=== PATIENT | male | born 1960 | race Asian ===

== ENCOUNTER 2019-12-03 05:41 | Day surgery (SDC) | payer OTHER ==
[2019-11-27 12:28] LABS: HEMATOCRIT 41.2 % (42.0-52.0); HEMOGLOBIN 13.9 gm/dL (14.0-18.0); MCH 31.1 pg (26.0-34.0); MCHC 33.7 g/dL (28.0-37.0); MCV 92.4 fL (80.0-100.0); RBC 4.46 mil/uL (4.50-6.00); RDW 12.6 % (10.5-14.5)
[2019-11-27 12:35] LABS: PROTIME 10.1 Seconds (9.3-11.4)
[2019-11-27 12:36] LABS: ALBUMIN 4.1 g/dL (3.4-5.0); CALCIUM 8.7 mg/dL (8.5-10.1); POTASSIUM 3.8 mmol/L (3.5-5.1); URINE BILIRUBIN NEGATIVE (Negative); URINE BLOOD NEGATIVE (Negative); URINE CLARITY CLEAR; URINE COLOR YELLOW; URINE GLUCOSE-RANDOM* NEGATIVE (Negative); URINE KETONES NEGATIVE (Negative); URINE NITRITE-REFLEX NEGATIVE (Negative); URINE PROTEIN (DIPSTICK) NEGATIVE (Negative); URINE SPECIFIC GRAVITY 1.025 (1.005-1.035); URINE UROBILINOGEN 0.2 E.U./dl (0.2-1.0)
[2019-11-27 12:45] LABS: URINE LEUKOCYTES-REFLEX 1+ (Negative)
[2019-11-27 12:53] LABS: BACTERIA-REFLEX 1-9 Few /HPF (None Seen); CASTS None Seen /LPF (None Seen); CRYSTALS None Seen /LPF (None Seen); SQUAMOUS None Seen /LPF (0-3); URINE RBC None Seen /HPF (0-2); URINE WBC-REFLEX 0-5 Rare /HPF (0-5)
[~2019-12-03] VITALS: Ht 157.5 cm; Wt 71.7 kg
[2019-12-03] VITALS (11 sets, daily range): BP systolic 111–152; BP diastolic 68–111
[~2019-12-03 05:41] MED LIST: CLARITIN10 M3 PO
--- NOTE | 2019-12-03 14:38 | NUR ---
PT CARE ASSUMED AT 1030 POST OPERATIVE FOR A R. KNEE. A&Ox4. BP ELEVATED AND PT STATED THIS HAS BEEN NORMAL FOR HIS ONE WEEK PRIOR TO SURGERY DUE TO STRESS, PAIN, AND ANXIETY OF FOR THE SURGERY. BP IS 152/111. PAGED DR. MASSEY OFFICE AND AWAITING FURTHER ORDERS. AWAITING PT EVALUATION. PT WOULD LIKE TO GO HOME TODAY. PT IS CONFIDENTIAL. MELI HOSES, SCD'S, AND POLAR PACK IN PLACE. KENIA DRESSING INTACT. PULSES +2 ON OPERATIVE SITE. PT DENIES PAIN. PT COMPLAINS OF MINIMAL NAUSEA, ZOFRAN GIVEN. IV PATENT WITH NO REDNESS OR EDEMA. FLUIDS INFUSING. FALL PROTOCOL IN PLACE. CALL LIGHT IN REACH. ORDERS ARE TO CONSULT HOSPITALIST FOR CLOSER EVALUATION OF BP AND ONE EXTRA BAG OF FLUIDS WITH INCREASED RATE FROM 100ML/HR TO 150ML/HR
--- NOTE | 2019-12-03 15:29 | NUR ---
Patient has slept since being on the floor post-op. Parents are currently in the room. During physical therapy, patient became hypertensive and nausous. Gave zofran and called surgeon for order regaurding BP. Verbal order to increase fluids to 150 ml/hr. Doctor came to consult patient and ordered hypertensive medication PRN. Voided a very small amount. PT is back in room at this time.
--- NOTE | 2019-12-03 20:16 | NUR ---
ASSESSMENT COMPLETED. PT GIVEN PRN ZOFRAN, ABLE TO TAKE ORAL HS MEDS. PT RATES PAIN AT A 0/10. NEURO CHECKS TO LLE INTACT. KENIA DRSG, SCDS AND POLAR IN PLACE. FLUIDS REDUCED TO 100/HR PER PT REQUEST. BP AT A DECENT LEVEL. PT MAKES NEEDS KNOWN. PLEASANT AND COOPERATIVE.UNDER OBS STATUS. WILL CONTINUE WITH POC TILL EOS.
[2019-12-04 04:00] VITALS: BP 127/81
[2019-12-04 05:36] LABS: ABSOLUTE NEUTROPHILS 7.6 thou/uL (1.4-8.2); BASOPHILS 0.1 % (0.0-2.0); EOSINOPHILS 0.3 % (0.0-3.0); HEMATOCRIT 35.1 % (42.0-52.0); HEMOGLOBIN 11.8 gm/dL (14.0-18.0); LYMPHOCYTES 12.5 % (24.0-44.0); MCH 31.3 pg (26.0-34.0); MCHC 33.8 g/dL (28.0-37.0); MCV 92.7 fL (80.0-100.0); MONOCYTES 9.4 % (1.0-8.0); PLATELET COUNT 142 thou/uL (150-400); POLYS 77.7 % (36.0-66.0); RBC 3.79 mil/uL (4.50-6.00); RDW 12.6 % (10.5-14.5); WBC 9.8 thou/uL (4.0-11.0)
[2019-12-04 08:20] VITALS: BP 115/79
[2019-12-04 09:55] VITALS: BP 115/79
[2019-12-04 12:15] VITALS: BP 115/79
--- NOTE | 2019-12-04 12:57 | NUR ---
PT ADMITTED RLEATED TO LEFT PARTIAL KNEE REPLACEMENT. CM MET WITH PT AT BEDSIDE THIS DAY. PT IS A&O X4. CM ROLE INTRODUCED. PT INDICATED HE LIVE ALONE IN A HOUSE WITH 4 STEPS TO ENTER AND NONE INSIDE. PT INDICATED HE HAD USED A [employer] GLASS C[employer]TER. PT INIDCATED HE NEEDED A FWW FOR HOME USE. CM SENT ORDER TO [facility] THEY ARE IN NETWORK WITH PT'S INSURANCE. CM CALLED TO NOTIFY THEM OF ORDER AND THEY INDICATED THAT THEY COULD HAVE IT DELIVERED WITHIN 30 MINS OF RECIEVEING ORDER SO CM INDICATED THAT PT PT ANC CARE TEAM. FWW STILL HADN'T BEEN DELIVERED HOURS LATER. CM CALLED TO GET ETA AT 11:50 AND IT WAS INDICATED IT WAS OUT FOR DELIVERY AND SHOULD BE TO PT'S ROOM WITHIN THE HOUR. CM UPDATED CARE TEAM. PT INDICATED HE PLANS TO DO OP PT HERE AT [facility]. NO OTHER CM INTERVENTION INDICATED. CASE CLOSED.
--- NOTE | 2019-12-04 15:24 | O ---
[facility] [place] [address] OPERATIVE REPORT Name: NAHOMY CABRERA Room #: DEP [facility] M.R.#: [id number] Admission: 12/03/19 Attend Phys: James Armstrong MD Discharge: 12/04/19 Date of : 62 Report #: [id number] THIS REPORT FOR: cc: Anant Flores MD, Rene P. MD Abraham,James Sethi MD ~ CC: Anant Armstrong DATE OF SERVICE: 12/03/2019 PREOPERATIVE DIAGNOSIS: Left knee medial compartment osteoarthritis. POSTOPERATIVE DIAGNOSIS: Left knee medial compartment osteoarthritis. PROCEDURE: Left medial compartment knee arthroplasty using Navio robotic assistance. SURGEON: James Armsrtong MD WAREHOUSING TECHNICIAN: Alicia Foster PA-C INDICATIONS FOR WAREHOUSING TECHNICIAN: Throughout the case, extensive retraction and manipulation of the knee was required. This was afforded to me by my melter assistant. ANESTHESIA: LMA with an adductor canal block. IMPLANTS: Rodriguez [employer] Nephew size 4 Journey Oxinium medial femoral component, a size 1 tibia and a size 9 polyethylene. TOURNIQUET TIME: 48 minutes. ESTIMATED BLOOD LOSS: 25 mL. COMPLICATIONS: None. SPECIMENS: None. CONDITION UPON LEAVING THE OPERATING ROOM: Stable. INDICATIONS FOR PROCEDURE: The patient is a 59-year-old gentleman with severe left knee medial compartment osteoarthritis. He had failed conservative measures for this and after discussion with him, he elected for left medial compartment knee arthroplasty. DESCRIPTION OF PROCEDURE: Risks, benefits, alternatives and complications were [facility] [address] [place] [address] OPERATIVE REPORT Name: NAHOMY CABRERA Room #: DEP [facility] M.Sen.#: [id number] Admission: 12/03/19 Attend Phys: James Armstrong MD Discharge: 12/04/19 Date of : 62 Report #: [id number] discussed in detail with the patient including but not limited to risk of anesthesia, risk of damage to nerves, arteries, blood vessels, risk for infection, bleeding, risk for continued knee pain, need for reoperation. Informed consent was obtained from the patient. Left knee was appropriately marked in the preoperative holding area. IV Ancef was given for preoperative antibiotics. Adductor canal block was placed by anesthesia. He was brought to the operating room and placed in supine position on operating room table. LMA anesthesia was induced without complication. Tourniquet was placed on the left thigh. Left lower extremity was prepped and draped in normal sterile fashion. Timeout was performed properly identifying the patient and procedure as well as the instrumentation and implants. All in the operating room were in agreement. Left lower extremity was exsanguinated, tourniquet was inflated. Tourniquet time was 48 minutes. Standard approach to the medial knee was made with 10 blade through the skin. Dissection was taken down sharply to the fascia and deep flaps were developed medially and laterally. Fresh 10 blade was used to make a medial parapatellar arthrotomy and the knee was inspected. There was severe medial compartment osteoarthritis. Lateral compartment was well maintained. ACL was intact. 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 It was decided to proceed with medial compartment arthroplasty. Reference pins were placed in the femur and the tibia. The knee was then digitally mapped using the Manzama robotic system. Intraoperative plan was made and we sized the size 4 femur with a size 1 tibia with a size 10 spacer. After acceptance of the intraoperative plan, the femoral and tibial resections were made with a Navio bur. The remainder of the meniscus was removed with Bovie cautery. The tibia was sized, found to be a size 1 and a size 1 tibial trial was pinned and drilled. A size 4 femoral trial was placed. This was then trialed with a size 9 polyethylene. Knee was taken through range of motion, found to have a millimeter of laxity medially throughout range of motion of the knee with good balance throughout range of motion. After this, trial components were removed. Bony ends were thoroughly irrigated with normal saline. A final size 1 tibia and size 4 Oxinium Journey medial femoral component were cemented in place using standard cementation techniques. While the cement cured, a periarticular injection consisting of morphine, ropivacaine, epinephrine and Toradol was placed around the knee joint capsule. After the cement cured, the tourniquet was deflated. Hemostasis was obtained with Bovie cautery. Final size 9 polyethylene was placed. A gram of vancomycin was placed deep in the joint. The fascia was closed with 0 Vicryl, skin was closed with 2-0 Vicryl, 3-0 Monocryl. Dermabond and a KENIA dressing was applied. The patient tolerated this procedure well and went to the recovery room under care of anesthesia postoperatively. <ELECTRONICALLY SIGNED> By: James Armstrong MD 12/04/19 1524 [id number] 1022 James Armstrong MD /nt
--- NOTE | 2019-12-06 15:32 | EKG ---
[facility] [place] [address] ELECTROCARDIOGRAM REPORT Name: NAHOMY CABRERA Room #: DEP [facility] M.R.#: [id number] Admission: 12/03/19 Attend Phys: James Armstrong MD Discharge: 12/04/19 Date of : 62 Report #: [id number] THIS REPORT FOR: cc: Anant Flores MD, Rene P. MD Lundgren,Rohith Lyon MD [facility] ~ THIS REPORT FOR: //name// [facility] Test Date: 2019-11-27 Test Time: 12:23:49 Pat Name: NAHOMY CABRERA Department: Room: Gender: Lead Ramp Agent: Romy MA : 1960 Requested By: James Armstrong Order Number: [id number] MD: Rohith Prather Measurements Intervals [place] Rate: 95 P: 46 TN: 154 QRS: 6 QRSD: 93 T: 3 QT: 362 QTc: 455 Interpretive Statements Sinus rhythm Early repolarization No previous ECG available for comparison Electronically Signed On 11-29-2019 9:06:46 COLD STRIP FEEDER by Rohith Prather [email or web address] <ELECTRONICALLY SIGNED> By: Rohith Prather MD, [facility] 11/29/19 0906 1223 1223 Rohith Prather MD, [facility] /EPI
== END 2019-12-04 14:06 | disposition home or self-care (01) ==
LOC: OR 05:41 → TBA 06:01 → OR 06:58 → 4S 10:54 → OR 11:47
PROVIDERS: Orthopaedic Surgery
DX: M17.12 Unilateral primary osteoarthritis, left knee (principal); M25.562 Pain in left knee; I10 Essential (primary) hypertension; Z98.890 Other specified postprocedural states; Z79.899 Other long term (current) drug therapy
CPT/HCPCS: 10102; 50010; 50101; 50415; 50954; 51130; 51225; 51320; 52001; 52282; 53078; 53370; 54118; 56527; 56528; 57095; 57103; 57110; 57127; 57179; 62110; 62900; 64043; 65060; 70005